=== PATIENT | male | born 1985 | race Caucasian/White ===

== ENCOUNTER 2024-03-29 13:10 | Emergency (ER) | payer OTHER, SELFPAY ==
--- NOTE | ~2024-03-29 | XR_ITS ---
EXAMINATION: XR elbow LT min 3V DATE: 03/29/2024 15:39 INDICATION: Left elbow pain and swelling TECHNIQUE: Anteroposterior, two oblique and lateral views of the left elbow were obtained. COMPARISON: None. FINDINGS: Alignment is normal. No fracture or joint effusion. Joint spaces are normal. Bone island at the proxi mal ulna. Prominent soft tissue swelling posterior to the olecranon. IMPRESSION: 1. No left elbow joint effusion or acute osseous abnormality. 2. Prominent soft tissue swelling posterior to the olecranon which in the acute nontraumatic setting is suspicious for olecranon bursitis. Reviewed, dictated and finalized at location B. [employer]
[2024-03-29 13:37] VITALS: BP 119/73; PULSE 80; RESP 18; TEMP 36.2
--- NOTE | 2024-03-29 15:06 | ED.EXTPRO ---
HPI - Extremity Problem General Chief complaint: Extremity Problem,Nontraumatic Stated complaint: swelling to L elbow denies trauma Time Seen by Provider: 03/29/24 15:06 Source: patient Mode of arrival: ambulatory Limitations: no limitations History of Present Illness HPI Narrative: Patient is a 38-year-old male who presents the ED with report of left elbow swelling. Patient reports he rested his elbow down while he was at a approximately 1 hour ago when he noticed some swelling into his left elbow. He reports dull pain into the left elbow. Denies any fall or injury. Denies history of similar complaints. Denies fevers. He has noticed a slight warmth to elbow. Related Data Home Medications Medication Instructions Recorded Confirmed No Home Medications 03/29/24 03/29/24 Allergies Allergy/AdvReac Type Severity Reaction Status Date / Time No Known Allergies Allergy Verified 03/29/24 16:06 Review of Systems Review of Systems: All systems reviewed & are unremarkable except as noted in HPI. All systems reviewed & are unremarkable except as noted in HPI and below Exam Narrative: GENERAL: Well appearing, well-nourished, non-toxic, in no acute distress. HEAD: Normocephalic, atraumatic. RESPIRATORY: Airway patent, respirations nonlabored. CARDIOVASCULAR: Regular rate and rhythm. Peripheral pulses intact. MUSCULOSKELETAL: Moves all extremities. Full range of motion of left elbow flexion-extension. Moderate swelling to left olecranon consistent with bursitis. Minimal warmth. No redness. No drainage or pustular heads. Sensation intact. SKIN: Warm, dry, normal color. NEURO: A&O X3. Speech clear. No ataxic movements. PSYCHIATRIC: Appropriate mood and affect. Normal interaction. Course Vital Signs Vital signs: Vital Signs Temperature 97.2 F L 03/29/24 13:37 Pulse Rate 80 03/29/24 13:37 Respiratory Rate 18 03/29/24 13:37 Blood Pressure 119/73 03/29/24 13:37 Oxygen Delivery Room Air 03/29/24 13:37 Temperature 98.4 F 03/29/24 16:20 Pulse Rate 69 03/29/24 16:20 Respiratory Rate 18 03/29/24 16:20 Blood Pressure 118/83 03/29/24 16:20 Pulse Oximetry 99 03/29/24 16:20 Oxygen Delivery Room Air 03/29/24 13:37 MDM - Extremity (Nontraumatic) MDM Narrative Medical decision making narrative: No evidence of septic joint or septic bursitis. Full ROM, minimal pain, no skin changes/drainage/redness. No systemic signs of infection. X-ray without osseous abnormality. No elbow joint effusion. Showing soft tissue swelling consistent with olecranon bursitis. Discussed rice therapy, anti-inflammatories, Enzo bandage for compression and support. Given strict return precautions. D/C in stable condition. Medical Records Attestation: I reviewed the patient's medical records. Imaging Data Attestation: I personally reviewed and interpreted this imaging study as follows: Radiologist's impression: ITS Impressions Elbow X-Ray 03/29/24 15:42 IMPRESSION: 1. No left elbow joint effusion or acute osseous abnormality. 2. Prominent soft tissue swelling posterior to the olecranon which in the acute nontraumatic setting is suspicious for olecranon bursitis. Discharge Plan Discharge Clinical Impression: Olecranon bursitis of left elbow Patient Disposition: Home, Self-Care Condition: Stable Instructions: Antibiotic Form, Elbow Bursitis (ED) Additional Instructions: Recommend rest, ice to elbow, Enzo bandage for compression and support. Limit pressure on elbow. Support elbow with pillows at night. Recommend Tylenol and ibuprofen as needed for discomfort/anti-inflammatory effect. Follow-up with your primary care doctor for further evaluation. Return to the ED if you experience worsening or severe swelling, significant redness to elbow, limited range of motion of elbow joint, fevers, drainage, or any other symptoms of concern. Prescriptions: No Action No Home Medications Follow-up/Referrals: Mariano Cordoba MD [Primary Care Provider] - Time of Disposition: 15:59
[2024-03-29 16:20] VITALS: BP 118/83; PULSE 69; RESP 18; TEMP 36.9; O2SAT 99
== END 2024-03-29 16:20 | disposition home or self-care (01) ==
LOC: ANHED 16:10
PROVIDERS: Emergency Provider Physician Assistant; PCP Family Medicine
DX: M70.22 Olecranon bursitis, left elbow (principal)
CPT/HCPCS: 73080; 99283